=== PATIENT | male | born 1960 | race Hispanic/Latino ===

== ENCOUNTER 2017-07-08 18:55 | Emergency (ER) | payer BC ==
[2017-07-08] MEDS ORDERED: IBUPROFEN 400 MG TAB ONE (19:46)
[2017-07-08] MEDS ORDERED: IBUPROFEN 200 MG TAB PO ONE (19:47)
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
== END 2017-07-08 20:39 | disposition home or self-care (01) ==
LOC: ER 18:55
DX: S16.1XXA Strain of muscle, fascia and tendon at neck level, initial encounter (principal); V89.2XXA Person injured in unspecified motor-vehicle accident, traffic, initial encounter; Z88.1 Allergy status to other antibiotic agents; Z88.6 Allergy status to analgesic agent
CPT/HCPCS: 72125; 99284